=== PATIENT | female | born 1970 | race Caucasian/White ===

== ENCOUNTER 2024-05-09 08:36 | Emergency (ER) | payer SELFPAY ==
--- NOTE | ~2024-05-09 | XR_ITS ---
EXAMINATION: XR chest 2V DATE: 05/09/2024 11:17 INDICATION: Palpitations. Tachycardia. TECHNIQUE: Frontal and lateral views of the chest were obtained. COMPARISON: Chest CT 05/09/2024 FINDINGS: There is no pneumonia, pleural effusion, or pneumothorax. The heart size is normal. IMPRESSION: 1. No acute cardiopulmonary disease. Reviewed, dictated and finalized at location A.
--- NOTE | ~2024-05-09 | CT_ITS ---
EXAMINATION: CTA chest PE protocol DATE: 05/09/2024 11:11 INDICATION: Palpitations. TECHNIQUE: Computed tomography angiography (CTA) of the chest was performed with 100 mL Omnipaque-350 intravenous contrast timed to evaluate the pulmonary arteries. Coronal maximum intensity projection 3D-reconstructions were created by the technologist. Automated exposure control and iterative reconst ruction technique were employed. The dose-length product was 1013.15 mGy-cm. COMPARISON: Chest 2 views 05/09/2024 FINDINGS: The lungs demonstrate minimal atelectasis. There is mild scarring in paraspinal right lower lobe. No pleural effusion. There is a 1.4 cm nodule in right thyroid lobe, likely not clinically sig nificant. The heart size is normal. No pericardial effusion. There is no pulmonary embolus. There is severe cervical spondylosis and mild thoracic spondylosis. IMPRESSION: 1. No pulmonary embolus. Reviewed, dictated and finalized at location A. IMPRESSION: 1. No pulmonary embolus.
[2024-05-09 08:40] VITALS: BP 162/101; PULSE 80; RESP 18; TEMP 36.6; O2SAT 100
--- NOTE | 2024-05-09 08:44 | ECG_ITS ---
Test Date: 2024-05-09 08:47:02 Measurements Intervals [place] Rate: 77 P: 61 ME: 164 QRS: -11 QRSD: 82 T: 33 QT: 353 QTc: 401 Interpretive Statements SINUS RHYTHM POSSIBLE LEFT ATRIAL ENLARGEMENT [-0.1mV P WAVE IN V1/V2] LOW QRS VOLTAGE IN PRECORDIAL LEADS [QRS DEFLECTION < 1.0 mV IN CHEST LEADS] POOR R-WAVE PROGRESSION ABNORMAL ECG No previous ECG available for comparison Electronically Signed On 05-09-2024 11:33:48 CDT by Keagan Jacob M.D.
--- NOTE | 2024-05-09 10:16 | ED.ARRPALP ---
HPI - Arrhythmia/Palpitations General Chief Complaint: Arrhythmia/Palpitations <Derian Noel APRN - Last Filed: 05/09/24 10:20> Stated Complaint: High Heart Rate, Nausea <Derian Noel APRN - Last Filed: 05/09/24 10:20> Time Seen by Provider: 05/09/24 10:16 <Derian Noel APRN - Last Filed: 05/09/24 10:20> patient presents with chest palpitations that started at 330 this morning. patient states it woke her up in the middle of the night and last until 7a. patient had a hx of heart palpitations 12 years ago while she was . 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 patient states she has had increased stress visiting family with recent travel PE: A&Ox3, BS CTA, HR RRR with no murmur, abdomen soft, patient moving all extremities <Derian Noel APRN - Last Filed: 05/09/24 10:20> History of Present Illness HPI narrative: Agree with HPI. Patient has history of blood clots in the past. She is no longer on anticoagulation. She did fly here from [place]. Her and her who is a general practitioner took Lovenox before flying to prevent any potential clot. Patient has no chest pain shortness of breath. Denies extra caffeine. She has been under additional stress since being in the [facility] and staying with family. Reports heart rate was up into the 130s throughout the night. No palpitations at this time. No dyspnea or chest pain or dizziness. <Nader Weinstein MD - Last Filed: 05/09/24 12:24> Related Data Allergies/Adverse Reactions: Allergies Allergy/AdvReac Type Severity Reaction Status Date / Time No Known Allergies Allergy Verified 05/09/24 10:30 <Derian Noel APRN - Last Filed: 05/09/24 10:20> Review of Systems Review of Systems: All systems reviewed & are unremarkable except as noted in HPI and below <Nader Weinstein MD - Last Filed: 05/09/24 12:24> Constitutional: Constitutional: Reports no additional constitutional complaints <Naedr Weinstein MD - Last Filed: 05/09/24 12:24> ENT: Reports system reviewed and no additional complaints, except as documented <Nader Weinstein MD - Last Filed: 05/09/24 12:24> Cardiovascular: Cardiovascular: Denies chest pain, Reports rapid heart rate and Denies radiating jaw, neck or arm pain <Nader Weinstein MD - Last Filed: 05/09/24 12:24> Respiratory: Respiratory: Reports no additional respiratory complaints <Nader Weinstein MD - Last Filed: 05/09/24 12:24> Gastrointestinal: Gastrointestinal: Reports no additional gastrointestinal complaints <Nader Weinstein MD - Last Filed: 05/09/24 12:24> Musculoskeletal: Musculoskeletal: Reports no additional musculoskeletal complaints <Nader Weinstein MD - Last Filed: 05/09/24 12:24> Neurologic: Reports system reviewed and no additional complaints, except as documented <Nader Weinstein MD - Last Filed: 05/09/24 12:24> PMF Past Medical History Medical History: Medical History (Updated 05/09/24 @ 12:24 by Nader Weinstein MD) DVT (deep venous thrombosis) <Derian Noel APRN - Last Filed: 05/09/24 10:20> Surgical History Surgical History: Surgical History (Updated 05/09/24 @ 12:20 by Nader Weinstein MD) No history of previous surgery <Derian Noel APRN - Last Filed: 05/09/24 10:20> Exam Narrative: GENERAL: Well-appearing, morbidly obese, and in no acute distress. HEAD: Normocephalic, atraumatic. ENT: Mucous membranes moist. TMs normal bilaterally. NECK: Supple. CHEST: Clear to auscultation. No respiratory distress. HEART: Regular rate and rhythm. Normal peripheral pulses. ABDOMEN: Soft, nontender, nondistended. EXTREMITIES: Normal range of motion. No edema. Negative Homans sign. SKIN: Warm, dry, no rash. NEURO: Alert and oriented x3. PSYCH: Normal mood and affect. <Nader Weinstein MD - Last Filed: 05/09/24 12:24> Course Vital Signs Vital signs: Vital Signs Temperature 97.9 F 08/0
[2024-05-09 10:31] VITALS: PULSE 64
[2024-05-09 10:34] VITALS: BP 144/83; PULSE 67; RESP 15; TEMP 36.4; O2SAT 100
[2024-05-09 10:35] LABS: Basophils Percent Auto 0.6 % (0.2-1.2); Eosinophils Absolute Auto 0.1 K/mm3 (0-0.3); Eosinophils Percent Auto 1.1 % (0-4.4); Hemoglobin 13.9 g/dL (12.0-15.0); Immature Granulocyte Absolute 0.02 K/mm3 (0.00-0.031); Immature Granulocyte Percent A 0.3 % (0-0.5); Lymphocytes Absolute Auto 0.98 K/mm3 (0.9-3.2); Lymphocytes Percent Auto 14.8 % (18.3-44.2); Mean Corpuscular HGB Conc 33.1 g/dl (32-36); Mean Corpuscular Hemoglobin 30.5 pg (26-34); Mean Corpuscular Volume 92.3 fl (80-100); Mean Platelet Volume 9.3 fl (7.4-10.4); Monocytes Absolute Auto 0.3 K/mm3 (0.1-0.6); Neutrophils Absolute Auto 5.2 K/mm3 (1.3-6.7); Neutrophils Percent Auto 78.2 % (45.5-73.1); Platelet Count Result 273 k/mm3 (150-375); Red Blood Count 4.55 M/mm3 (4.2-5.4); Red Cell Distribution Width 13.7 % (11.5-14.5); White Blood Count 6.6 K/mm3 (4.5-10.0)
[2024-05-09] MEDS: SODIUM CHLORIDE 0.9% IV 1,000 ML 999 ML IV CONT (10:37)
[2024-05-09 10:53] LABS: Alanine Aminotransferase 14 U/L (6-35); Albumin Level 4.5 g/dL (3.5-5.1); Alkaline Phosphatase 117 U/L (38-126); Anion Gap 5 mmol/L (4-12); Aspartate Amino Transferase 22 U/L (14-36); Bilirubin,Total 0.5 mg/dL (0.2-1.3); Blood Urea Nitrogen 16 mg/dL (7-17); Calcium 9.1 mg/dL (8.4-10.2); Carbon Dioxide 26 mmol/L (22-30); Chloride 109 mmol/L (98-107); D Dimer 0.51 ug/mL (<0.48); Estimated CRCL calculation 101 ml/min; Estimated Glomerular Filt Rate > 60; Glucose 117 mg/dL (65-110); Magnesium 2.1 mg/dL (1.6-2.3); Potassium 3.9 mmol/L (3.4-5.0); Sodium 140 mmol/L (137-145)
[2024-05-09 11:02] LABS: Troponin I < 0.012 ng/mL (0.000-0.034)
[2024-05-09 11:15] LABS: Creatine Kinase 79 U/L (30-135)
[2024-05-09 11:20] LABS: Thyroid Stimulating Hormone 0.956 uIU/mL (0.465-4.680)
[2024-05-09 11:30] VITALS: BP 124/77
[2024-05-09 11:36] VITALS: PULSE 73; RESP 18; O2SAT 100
[2024-05-09 12:30] VITALS: BP 123/73; PULSE 70; RESP 15; TEMP 36.8; O2SAT 100
== END 2024-05-09 12:30 | disposition home or self-care (01) ==
PROVIDERS: Nurse Practitioner Family; Emergency Provider Emergency Medicine
DX: R00.2 Palpitations (principal); E04.1 Nontoxic single thyroid nodule; E66.9 Obesity, unspecified; Z68.42 Body mass index [BMI] 45.0-49.9, adult; Z86.718 Personal history of other venous thrombosis and embolism
CPT/HCPCS: 36415; 71046; 71275; 80053; 82550; 83735; 84443; 84484; 85025; 85380; 93005; 96360; 99284; J7030; Q9967